=== PATIENT | male | born 1995 | race Asian ===

== ENCOUNTER 2022-03-26 13:54 | Emergency (ER) | payer BC, OTHER ==
[~2022-03-26] VITALS: Ht 172.7 cm; Wt 75.4 kg
[2022-03-26 15:34] LABS: BASO % 0.4 % (0.0-1.0); EOS % 0.3 % (0.0-3.0); HEMATOCRIT 43.2 % (42.0-52.0); HEMOGLOBIN 14.4 g/dl (13.5-17.5); LYMPH # 1.8 10^3/uL (1.5-5.0); LYMPH % 26.3 % (24.0-44.0); MEAN CORPUSCULAR HEMOGLOBIN 29.8 pg (27.0-33.0); MEAN CORPUSCULAR HGB CONC 33.3 g/dl (32.0-36.5); MEAN CORPUSCULAR VOLUME 89.4 fl (80.0-96.0); MONO # 0.7 10^3/uL (0.0-0.8); MONO % 9.7 % (2.0-8.0); NEUTROPHILS # 4.3 10^3/uL (1.5-8.5); NEUTROPHILS % 62.9 % (36.0-66.0); PLATELET COUNT, AUTOMATED 294 10^3/uL (150-450); RED BLOOD COUNT 4.83 10^6/uL (4.30-6.10); WHITE BLOOD COUNT 6.8 10^3/uL (4.0-10.0)
[2022-03-26 15:56] LABS: MONO REFLEX EBV COMP NEGATIVE (NEGATIVE)
[2022-03-26 15:57] LABS: ALBUMIN 4.3 GM/DL (3.2-5.2); ALT/SGPT 97 U/L (12-78); BILIRUBIN,DIRECT 0.2 MG/DL (0.0-0.2); BILIRUBIN,TOTAL 0.7 MG/DL (0.2-1.0); BLOOD UREA NITROGEN 5 MG/DL (7-18); CALCIUM LEVEL 9.3 MG/DL (8.5-10.1); CARBON DIOXIDE LEVEL 28 MEQ/L (21-32); CHLORIDE LEVEL 105 MEQ/L (98-107); GLOMERULAR FILTRATION RATE > 60.0 (>60); GLUCOSE, FASTING 99 MG/DL (70-100); LIPASE 113 U/L (73-393); POTASSIUM SERUM 3.9 MEQ/L (3.5-5.1); SODIUM LEVEL 140 MEQ/L (136-145); TOTAL PROTEIN 8.1 GM/DL (6.4-8.2)
[2022-03-26 16:00] LABS: GC DNA AMPLIFICATION NEGATIVE (NEGATIVE)
[2022-03-26] MEDS ORDERED: DOXYCYCLINE HYCLATE 100MG TABLET PO ONE (16:05)
[2022-03-26] MEDS ORDERED: DOXY-443 PO (16:11)
[2022-03-26 16:18] VITALS: BP 140/84
== END 2022-03-26 16:25 | disposition home or self-care (01) ==
LOC: M ED 13:54
DX: A74.9 Chlamydial infection, unspecified (principal); R59.1 Generalized enlarged lymph nodes

== ENCOUNTER → 2022-11-25 | Outpatient (REF) ==
[~2022-11-25] MED LIST: DOXY-443 PO
[2022-11-25 14:37] LABS: RSV AMPLIFICATION NEGATIVE (NEGATIVE)
== END ==
LOC: M EMP 12:34
PROVIDERS: ATTEND Family Medicine
DX: Z11.52 Encounter for screening for COVID-19 (principal)

== ENCOUNTER → 2024-06-05 | Outpatient (CLI) | payer BC ==
[~2024-06-05] MED LIST changes: +DOXY-323 PO; -DOXY-443 PO
== END ==
LOC: M WUC 13:27
PROVIDERS: ATTEND Physician Assistant
DX: M25.562 Pain in left knee (principal); M79.89 Other specified soft tissue disorders

== ENCOUNTER → 2024-06-06 | Outpatient (REF) | payer BC ==
[2024-06-06 15:02] LABS: BASO % 0.4 % (0.0-1.0); EOS # 0.1 10^3/uL (0.0-0.5); EOS % 0.9 % (0.0-3.0); HEMOGLOBIN 14.8 g/dl (13.5-17.5); LYMPH # 2.2 10^3/uL (1.5-5.0); LYMPH % 31.9 % (24.0-44.0); MEAN CORPUSCULAR HEMOGLOBIN 29.4 pg (27.0-33.0); MEAN CORPUSCULAR HGB CONC 32.2 g/dl (32.0-36.5); MEAN CORPUSCULAR VOLUME 91.3 fl (80.0-96.0); MONO # 0.4 10^3/uL (0.0-0.8); MONO % 5.9 % (2.0-8.0); NEUTROPHILS # 4.2 10^3/uL (1.5-8.5); NEUTROPHILS % 60.5 % (36.0-66.0); PLATELET COUNT, AUTOMATED 299 10^3/uL (150-450); RED BLOOD COUNT 5.04 10^6/uL (4.30-6.10); WHITE BLOOD COUNT 6.9 10^3/uL (4.0-10.0)
[2024-06-06 15:16] LABS: URIC ACID 5.5 MG/DL (3.7-9.2)
[2024-06-06 15:17] LABS: C REACTIVE PROTEIN QUANTITATIV < 0.40 MG/DL (<1.0)
[2024-06-06 15:19] LABS: ALBUMIN 4.4 G/DL (3.2-5.2); ALKALINE PHOSPHATASE 94 U/L (46-116); ALT/SGPT 68 U/L (7.0-40); AST/SGOT 28 U/L (<34); BILIRUBIN,TOTAL 0.9 MG/DL (0.3-1.2); BLOOD UREA NITROGEN 8 MG/DL (9-23); CARBON DIOXIDE LEVEL 28 MMOL/L (20-31); CHLORIDE LEVEL 103 MMOL/L (98-107); CREATININE FOR GFR 0.65 MG/DL (0.70-1.30); GLOMERULAR FILTRATION RATE > 60.0 (>60); GLUCOSE, FASTING 76 MG/DL (60-100); POTASSIUM SERUM 4.5 MMOL/L (3.5-5.1); RHEUMATOID FACTOR QUANT < 3.5 IU/ML (<14); SODIUM LEVEL 137 MMOL/L (136-145); TOTAL PROTEIN 7.6 G/DL (5.7-8.2)
[2024-06-06 15:36] LABS: ERYTHROCYTE SEDIMENTATION RATE 16 mm/hr (0-15)
[2024-06-09 15:12] LABS: LYME TOTAL ANTIBODY CIA <= 0.90 Index (<=0.90)
[2024-06-11 23:07] LABS: CYCLIC CITRULLINATED PEPTIDE < 16 UNITS (<20)
== END ==
LOC: M LAB REF 14:21
PROVIDERS: ATTEND Physician Assistant
DX: M25.562 Pain in left knee (principal)